=== PATIENT | male | born 1955 | race Caucasian/White ===

== ENCOUNTER 2023-12-22 19:01 | Emergency (ER) | payer SELFPAY ==
[~2023-12-22] VITALS: Ht 180.3 cm; Wt 113.4 kg
[2023-12-22 19:05] VITALS: BP 92/62; PULSE 132; RESP 20; TEMP 97.9; O2SAT 95
[2023-12-22 19:07] VITALS: BP 92/62; PULSE 132; RESP 18; TEMP 97.4; O2SAT 94
[2023-12-22 19:30] LABS: BASOPHILS % (AUTO) 0.2 % (0.0-2.0); EOSINOPHILS % (AUTO) 0.4 % (0.0-4.0); HEMATOCRIT 39.6 % (36-52); LYMPHOCYTES # (AUTO) 0.9 K/uL (2.0-11.5); LYMPHOCYTES % (AUTO) 6.7 % (20.5-51.1); MEAN CORPUSCULAR HEMOGLOBIN 31 pg (27-31); MEAN CORPUSCULAR HGB CONC 33 g/dL (33-37); MEAN CORPUSCULAR VOLUME 94.4 fL (80-94); MONOCYTES # (AUTO) 0.9 K/uL (0.8-1.0); MONOCYTES % (AUTO) 7.1 % (1.7-9.3); NEUTROPHILS # (AUTO) 11.3 K/uL (1.8-7.7); NEUTROPHILS % (AUTO) 85.6 % (42.2-75.2); PLATELET COUNT (AUTO) 226 K/uL (140-450); RED CELL DISTRIBUTION WIDTH 15.1 % (11.6-13.7); WHITE BLOOD COUNT (AUTO) 13.2 K/uL (4.8-10.8)
[2023-12-22 19:48] LABS: ANION GAP 22.6 (8-16); CALCIUM 9.9 mg/dL (8.5-10.1); CREATININE 2.5 mg/dL (0.6-1.3); POTASSIUM 3.6 mmol/L (3.5-5.1)
[2023-12-22 19:53] LABS: BILIRUBIN,DIRECT 0.2 mg/dL (0.0-0.3); TOTAL BILIRUBIN 0.6 mg/dL (0.0-1.0); TOTAL PROTEIN, SERUM 7.8 g/dL (6.4-8.2)
[2023-12-22] MEDS: NACL 0.9% 1,000 ML IV ONE ×2 (19:58→20:47)
[2023-12-22 20:48] LABS: LACTIC ACID 6.4 mmol/L (0.4-2.0)
[2023-12-22 21:30] VITALS: BP 115/51; PULSE 100; RESP 14; O2SAT 100
== END 2023-12-22 21:30 | disposition home or self-care (01) ==
LOC: MED 19:01
DX: E86.0 Dehydration (principal); E11.9 Type 2 diabetes mellitus without complications; R06.02 Shortness of breath; X30.XXXA Exposure to excessive natural heat, initial encounter; Y93.89 Activity, other specified; Y92.89 Other specified places as the place of occurrence of the external cause; Y99.8 Other external cause status
CPT/HCPCS: 36415; 71045; 80048; 80076; 82550; 83605; 85025; 87040; 96360; 99284; J7030